=== PATIENT | female | born 1975 | race Caucasian/White ===

== ENCOUNTER 2025-02-08 15:03 | Inpatient (IN) | payer OTHER ==
[2025-02-08 16:20] VITALS: BMI 19.3
[2025-02-08] MEDS ORDERED: LOPERAMIDE HCL 2 MG CAPSULE PO PRN (18:01)
[2025-02-08] MEDS ORDERED: guaiFENesin 600 MG TABLET.ER (FP) PO PRN (18:01)
[2025-02-08] MEDS ORDERED: IBUPROFEN 400 MG TABLET (FP) PO PRN (18:01)
[2025-02-08] MEDS ORDERED: METHOCARBAMOL 500 MG TABLET PO PRN (18:01)
[2025-02-08] MEDS ORDERED: IBUPROFEN 600 MG TABLET (FP) PO PRN (18:01)
[2025-02-08] MEDS ORDERED: hydrOXYzine PAMOATE 25 MG CAPSULE (FP) PO PRN (18:01)
[2025-02-08] MEDS ORDERED: ONDANSETRON *ODT* 4 MG TABLET SL PRN (18:01)
[2025-02-08] MEDS ORDERED: BENZONATATE 200 MG CAPSULE PO PRN (18:01)
[2025-02-08] MEDS ORDERED: BISMUTH SUBSALICYLATE 524 MG/30 ML PO PRN (18:01)
[2025-02-08] MEDS ORDERED: ACETAMINOPHEN 325 MG TABLET (FP) PO PRN (18:01)
[2025-02-08] MEDS ORDERED: POLYETHYLENE GLYCOL (HEALTHYLAX) 3350 17 GM PACKET PO PRN (18:01)
[2025-02-08] MEDS ORDERED: BENZOCAINE/MENTHOL (CHLORASEPTIC ) LOZENGE MM PRN (18:01)
[2025-02-08] MEDS ORDERED: NALOXONE (NARCAN) HCL 4 MG/0.1 ML SPRAY NS PRN (18:01)
[2025-02-08] MEDS ORDERED: MAG HYDROX/AL HYDROX/SIMETH 30 ML UNIT-DOSE CUP PO PRN (18:01)
[2025-02-08] MEDS ORDERED: MAGNESIUM HYDROX 2400MG/30ML ORAL SUSPENSION 30 ML CUP PO PRN (18:01)
[2025-02-08] MEDS: THIAMINE 100 MG TABLET PO SCH (21:04)
[2025-02-08] MEDS: MELATONIN 5 MG TABLETS PO SCH (21:04)
[2025-02-09 09:44] VITALS: RESP 16
[2025-02-09] MEDS: PRENATAL VITAMINS W/ FOLIC ACID TABLET (FP) PO SCH (10:34)
[2025-02-09] MEDS: methaDONE HCL 10 MG TABLET PO SCH (11:30)
[2025-02-09 13:24] LABS: HEMATOCRIT 42.4 % (34.1-44.9); HEMOGLOBIN 13.3 g/dL (11.2-15.7); MCHC 31.4 g/dl (32.2-35.5); MEAN PLT VOLUME 10.1 fl (9.4-12.3); PLATELET COUNT 317 x10^3/uL (182-369); RDW 16.1 % (12.2-17.1)
[2025-02-09 13:48] LABS: CHLORIDE 108 mmol/L (98-107); POTASSIUM 4.5 mmol/L (3.5-5.1); SODIUM 142 mmol/L (136-145)
[2025-02-09 13:57] LABS: ALBUMIN 3.7 g/dl (3.4-5.0); ANION GAP 4 mmol/L (4-13); BLOOD UREA NITROGEN 11.5 mg/dL (7-18); CALCIUM 9.3 mg/dL (8.5-10.1); CO2 30 mmol/L (21-32); GLUCOSE,RANDOM 71 mg/dL (74-106)
[2025-02-09 14:02] LABS: BILIRUBIN,TOTAL 0.6 mg/dL (0.2-1); SGOT/AST 16 U/L (15-37); TOT PROT 6.6 g/dl (6.4-8.2)
[2025-02-09 14:03] LABS: ALK PHOS 66 U/L (45-117)
[2025-02-09 14:15] LABS: CREATININE 0.8 mg/dL (0.55-1.3); SGPT/ALT 24 U/L (13-61)
[2025-02-10] MEDS: DICYCLOMINE HCL 10 MG CAPSULE PO PRN (06:49)
[2025-02-10] MEDS ORDERED: ALBUTEROL SO4 HFA INHALER IH PRN (10:16)
[2025-02-10] MEDS: ACAMPROSATE CALCIUM 333 MG TABLET.DR PO SCH (14:05)
[2025-02-11 06:18] VITALS: PULSE 60
[2025-02-11 12:34] VITALS: BP 125/90; TEMP 97.6
== END 2025-02-11 09:45 | disposition other institution (70) | DRG 897 ==
LOC: YASAS 15:03 → Y6N 17:46
PROVIDERS: ADMIT Allergy & Immunology; ATTEND Allergy & Immunology
PROC: HZ2ZZZZ Detoxification Services for Substance Abuse Treatment (ICD-10-PCS; principal; 2025-02-08)
DX: F10.20 Alcohol dependence, uncomplicated (principal); F11.20 Opioid dependence, uncomplicated; F14.20 Cocaine dependence, uncomplicated; F19.282 Other psychoactive substance dependence with psychoactive substance-induced sleep disorder; F17.213 Nicotine dependence, cigarettes, with withdrawal; F25.0 Schizoaffective disorder, bipolar type; F19.24 Other psychoactive substance dependence with psychoactive substance-induced mood disorder; F60.9 Personality disorder, unspecified; F43.10 Post-traumatic stress disorder, unspecified; J45.20 Mild intermittent asthma, uncomplicated; Z62.810 Personal history of physical and sexual abuse in childhood; Z91.410 Personal history of adult physical and sexual abuse; Z63.8 Other specified problems related to primary support group; Z63.0 Problems in relationship with spouse or partner
CPT/HCPCS: 36415; 80053; 80305; 80307; 81025; 85027; 86780; 93005; 93010